=== PATIENT | female | born 1965 | race Caucasian/White ===

== ENCOUNTER 2021-12-26 10:07 | Emergency (ER) | payer BC, SELFPAY ==
[2021-12-26 10:08] VITALS: BP 147/90; PULSE 81; RESP 16; TEMP 36.3; O2SAT 100; BMI 19.0
--- NOTE | 2021-12-26 10:31 | EX.ED.DYSGE1 ---
HPI History of Present Illness Chief Complaint: Dizziness Informant: patient Onset/Context/Timing Onset: Today Context: Sudden Onset (Upon getting up out of bed) Timing: Intermittent Quality: Disequilibrium/off-balance Current Severity: Moderate Maximum Severity: Moderate Worsened by: Standing and walking Relieved by: Remaining still Associated Symptoms Associated Symptoms: None Narrative Narrative: Patient presents with disequilibrium. She states she noticed it upon getting out of bed this morning. She denies any earache, headache, nausea, vomiting, vision changes, peripheral weakness or numbness. She had this once before felt the same, went away on its own this was a year or 2 ago. She states she has chronic left ear issues. Mostly itching and irritation. She uses oil in it, she was told after she had swimmer's ear once that her left ear makes a lot of wax and so she tries to manage that with oil and Q-tips. States she has been messing with it a lot lately. She denies any pain or changes in hearing or tinnitus. PFSH PFS Medical History no medical history no medical history Home Medications gabapentin 300 mg capsule 300 mg PO TID 11/22/13 [History Last Taken Unknown] meclizine 25 mg tablet 25 mg PO Q8H PRN PRN Dizziness #20 tabs 12/26/21 [Rx Last Taken Unknown] Allergy/AdvReac Type Severity Reaction Status Date / Time erythromycin base AdvReac Upset Verified 12/26/21 10:07 [Erythromycin Base] Stomach Social History Smoking Status: Never smoker ROS ROS ED Constitutional Constitutional ED: Denies chills or fever(s) Eyes Eyes: Denies change in vision or diplopia ENT ENT ED: Reports as per HPI, disequillibrium and other Details: No janae vertigo ; Denies ear discharge, ear pain, rhinorrhea or sore throat Cardiovascular Cardiovascular: Denies chest pain or palpitations Respiratory/Chest Respiratory/Chest: Denies cough or dyspnea Gastrointestinal Gastrointestinal: Denies abdominal pain, diarrhea, nausea or vomiting Genitourinary Genitourinary ED: Denies dysuria or hematuria Musculoskeletal Musculoskeletal: Denies back pain or neck pain Integumentary Denies abscess or rash Neurologic Neurologic: Reports as per HPI and disequilibrium; Denies headache(s), paresthesias or weakness Psychiatric Psychiatric: Denies anxiety or suicidal thoughts EXAM Physical Exam Const Vital Signs: 12/26/21 10:08 Temperature 97.3 F L Temperature Source Temporal Pulse Rate 81 Respiratory Rate 16 Blood Pressure 147/90 H Blood Pressure Mean 109 Pulse Ox 100 Oxygen Delivery Method Room Air Positive well nourished and well developed General Appearance ED: well developed and NAD HEENT Reports moist mucous membranes HEENT Narrative: Normal EAC bilaterally. TMs are normal except for very slight erythema at the center of the left TM. normocephalic and atraumatic Eyes PERRL and EOMs intact bilaterally Neck full ROM and supple Resp normal respiratory effort and clear to auscultation bilaterally Cardio regular rate, regular rhythm and no murmurs GI non-tender and non-distended Auscultation: normoactive bowel sounds Palpation: soft Back/Spine no CVA tenderness General Back: other FROM Extremity normal to inspection General Extremety ED: Negative for edema, pulses abnormal or tenderness General Extremity: Negative for edema or pulses abnormal Neuro oriented x3, CN's II-XII intact bilaterally and no sensory deficits noted Neuro Narrative: No normal aliqkk-mi-wjaf and goii-iu-wziw bilaterally. Reproducible symptoms with Simon-Hallpike maneuver to the left but nothing to the right. No horizontal, vertical, or rotatory nystagmus. Sensorium / Orientation: awake and alert Motor Exam: strength 5/5 throughout Psych mental status grossly normal Skin no rashes or lesions noted and no wounds MDM MDM MDM Narrative Medical decision making narrative: Patient's history and exam are consistent with peripheral vertigo. Not able to do a jolt test because she is not having active symptoms while sitting at rest. Her left TM has slight erythema but not suggestive of acute otitis media and she has no pain, so I would not treat her with antibiotics unless she develops pain, if she does she is advised to seek follow-up or return to the ER. In the meantime I would treat her symptomatically with meclizine, will give her a dose and prescribed it for her and gave her otolaryngology follow-up as needed if she does not get better in a week and she is comfortable with that plan. Discharge Plan Triage Chief Complaint: Dizziness ED Provider: Santi Linares Dx/Rx/DC Orders Clinical Impression: Peripheral vertigo involving left ear Instructions: Inner Ear Balance, ED Vertigo, Unspecified Prescriptions: New meclizine [meclizine] 25 mg tablet 25 mg PO Q8H PRN PRN (Reason: Dizziness) Qty: 20 0RF No Action gabapentin 300 MG capsule 300 mg PO TID Label Comments: Primary Care Provider: Antonio Nieves Referrals: Antonio Nieves MD [Primary Care Provider] - Jae Loredo MD [Med Staff - Active Staff] - 1 Week if not improving Disposition Disposition: Home, Self Care
[2021-12-26] MEDS: Meclizine HCl 25 MG Tablet PO (10:40)
== END 2021-12-26 10:50 | disposition home or self-care (01) ==
LOC: ED 10:44
PROVIDERS: Emergency Provider Emergency Medicine; PCP Family Medicine; Visit Provider Emergency Medicine
DX: H81.392 Other peripheral vertigo, left ear (principal)
CPT/HCPCS: 99283

== ENCOUNTER 2024-09-01 18:56 | Emergency (ER) | payer BC, SELFPAY ==
[2024-09-01 18:58] VITALS: BP 186/88; PULSE 19; RESP 97; TEMP 36.6; O2SAT 100; BMI 18.3
--- NOTE | 2024-09-01 19:30 | EKG12_ITS ---
Test Reason : DYSRHYTHMIA Blood Pressure : */* mmHG Vent. Rate : 96 BPM Atrial Rate : 96 BPM P-R Int : 122 ms QRS Dur : 78 ms QT Int : 336 ms P-R-T Axes : 83 31 52 degrees QTcB Int : 424 ms Normal sinus rhythm Normal ECG Confirmed by Brenton Castillo ([id number]), health editor BON MEZA ([id number]) on 09/02/2024 9:19:03 AM Referred By: TA Confirmed By: Brenton Castillo
--- NOTE | 2024-09-01 21:15 | EDS_ITS ---
HPI History of Present Illness Chief Complaint: Palpitations [facility] Medical History Pulmonic stenosis Home Medications ?Medication ?Instructions ?Recorded ?Last Taken ?Type NK 09/01/24 Unknown History Allergy/AdvReac Type Severity Reaction Status Date / Time erythromycin base AdvReac Upset Verified 12/26/21 10:07 (Erythromycin Base) Stomach Family History no significant family his Social History Smoking Status: Never smoker EXAM Physical Exam Const Vital Signs: 09/01/24 18:58 09/01/24 21:16 09/01/24 23:00 Temperature 98 F Temperature Source Oral Pulse Rate 19 L 71 81 Respiratory Rate 97 H 16 16 Blood Pressure 186/88 H 167/85 H 144/86 H Blood Pressure Mean 120 112 105 Pulse Ox 100 100 99 Oxygen Delivery Method Room Air Room Air Room Air MDM MDM MDM Narrative Medical decision making narrative: HISTORY OF PRESENT ILLNESS: Chief complaint: Palpitations 58-year-old female history of pulmonary stenosis presenting with fluttering in the chest. She states has been on and off for over a month. She states she wants to get checked out. The patient denies personal family history of sudden cardiac . Denies recent chest pain, shortness of breath. Denies recent illness such as cough, chills or sweats. Denies recent volume ulcers vomiting or diarrhea. Denies any bleeding diathesis such as hemoptysis, vaginal bleeding, melena or hematochezia. The patient denies recent surgery in the last 4 weeks or immobilization in the last 3 days, denies previous diagnosis of DVT or PE, hemoptysis, unilateral leg swelling or malignancy with treatment the last 6 months or palliative. No estrogen use noted. REVIEW OF SYSTEMS: Pertinent positives: Palpitations Pertinent negatives: As per HPI PHYSICAL EXAM: Nursing triage notes reviewed, Vital signs reviewed Constitutional: please see mdm HENT: MMM Eyes: Pupils equal round and reactive to light, Extraocular muscles intact Neck: No stridor, no JVD, full neck ROM Lungs: Clear to auscultation, No wheezing or rales. No increased work of breathing, no conversational dyspnea, no accessory muscle use, no nasal flaring. No respiratory distress noted Heart: Regular rate and rhythm, No murmurs, No rubs and No gallops, 2+ distal pulses (radial, femoral, posterior tibial) in all extremities Abdomen: Soft, there is no tenderness, rigidity, rebound or guarding, no obvious peritoneal signs, no palpable pulsatile abdominal masses, no auscultated abdominal bruit : No CVAT Extremities: No edema Neuro: No new focal neurological deficits, cranial nerves II through XII intact, 5/5 strength in all present extremities. Intact sensation to light touch in all present extremities, 2+ reflexes bilateral patella tendons. Skin: No rash or lesions noted MEDICAL DECISION MAKING: Chief Complaint: please see HPI External records reviewed: Reviewed prior cardiovascular test Factors affecting care: Pulmonary stenosis Social determinants of health: denies alcohol or drug use History obtained from others: Consults: none MDM Narrative: The patient was initially hemodynamically stable, afebrile and nontoxic- appearing. Exam without focal cardiopulmonary abnormalities I considered the following differential diagnosis: Arrhythmia, anemia, electrolyte disturbance, dehydration, thyroid dysfunction I obtained a broad lab and imaging workup to further elucidate etiology patient complaints. Initially treated patient 1 L normal saline While I considered pulmonary embolism as a potential etiology the patient's complaints she had no chest pain, no shortness of breath is not hypoxic. In addition to that she had a negative well score. Her risk is low. No indication for D-dimer or CT at this time ALL IMAGES (IF OBTAINED) HAVE BEEN PERSONALLY REVIEWED AND INTERPRETED BY MYSELF. CBC without leukocytosis, severe anemia, no thrombocytopenia. EKG with normal sinus rhythm rate of 96, normal axis, normal intervals, no STEMI BMP without evidence of significant electrolyte abnormalities, no anion gap, no acute kidney injury. LFTs show no evidence of hepatobiliary pathology. TSH within normal limits, free T3 also negative making hypothyroidism unlikely. Free T4 elevated this is likely not clinically significant High-sensitivity troponin is negative, no evidence of myocardial ischemia I have personally reviewed the patient's chest x-ray. Chest x-ray is unremarkable for pulmonary edema, pneumothorax, pneumonia or focal cardiopulmonary abnormality. Upon reevaluation the patient's blood pressure improved from 186/88 to 144/86. No clear life-limiting etiology, identified. She is appropriate for discharge home with close PCP follow-up The patient and/or family, caregivers express understanding. The patient and/or family, caregivers agrees with the plan. Shared decision making: I will have a discussion with the patient and or visitors regarding risk/benefits of further testing or admission. They will be made aware of of the risk/benefits inherent in this decision they will be given the opportunity to voice understanding. Total critical care time today provided was at least 0 minutes. This excludes separately billable procedures. Critical care time (if documented) is secondary to the patient having high probability of clinically significant/life threatening deterioration in the patient's condition which required my urgent intervention. Impression: 1. Palpitations Dispo: Discharge home This note was generated with [employer] dictation software. It may contain incorrect words, spelling, and punctuation that were not noted in review of the chart prior to signing. Lab Data Labs: Laboratory Results - last 24 hr 09/01/24 21:23 WBC 8.3 RBC 4.86 Hgb 13.7 Hct 42.2 MCV 86.8 MCH 28.2 MCHC 32.5 RDW Std Deviation 42.8 RDW Coeff of Tahir 13.5 Plt Count 330 MPV 9.6 Immature Gran % (Auto) 0.100 Neut % (Auto) 55.8 Lymph % (Auto) 33.7 [place] % (Auto) 7.3 Eos % (Auto) 2.4 Baso % (Auto) 0.7 Absolute Neuts (auto) 4.7 Absolute Lymphs (auto) 2.81 Nucleated RBC % 0 Sodium 139 Potassium 5.2 H Chloride 103 Carbon Dioxide 30.2 Anion Gap 6 BUN 15 Creatinine 0.96 Estim Creat Clear Calc 43.29 L Est GFR (MDRD) Non-Af 68 BUN/Creatinine Ratio 15.8 Glucose 99 Calcium 9.6 Total Bilirubin 0.31 AST 45 H ALT 16 Alkaline Phosphatase 35 Troponin T High Sens 19 H Total Protein 7.7 Albumin 4.4 Globulin 3.3 Albumin/Globulin Ratio 1.3 TSH 2.640 Free T4 1.50 H Free T3 pg/dL 3.4 Radiography Diagnostic Testing: Clinical Impression(s) from Imaging Studies Chest X-Ray 09/01/24 21:55 IMPRESSION: No acute cardiopulmonary process. Reading Location: [facility] Discharge Plan Triage Chief Complaint: Palpitations ED Provider: Evans Bray Dx/Rx/DC Orders Prescriptions: No Action NK Primary Care Provider: Pankaj Carmichael Referrals: Antonio Nieves MD [Non-Staff] - Print Language: Sinhala
[2024-09-01 21:16] VITALS: BP 167/85; PULSE 71; RESP 16; O2SAT 100
[2024-09-01] MEDS: 0.9% Normal Saline (1000mL) 1,000 ML 1000 ML IV (21:25)
[2024-09-01 21:34] LABS: Absolute Lymphocyte Count 2.81 X10^3/uL (0.83-4.51); Absolute Neutrophil Count 4.7 X10^3/uL (2.0-7.7); Basophil# 0.06 X10^3/uL; Basophil% 0.7 % (0-1); Eosinophils% 2.4 % (0-5); Hematocrit 42.2 % (37-47); Hemoglobin 13.7 g/dL (12.0-15.0); Lymphocyte # 2.81 X10^3/ul (0.83-4.51); Lymphocyte % 33.7 % (19-41); Mean Corp Hgb Conc 32.5 g/dL (32-36); Mean Corpuscular Hgb 28.2 pg (27.0-32.0); Mean Corpuscular Volume 86.8 fL (81-99); Mean Platelet Vol. 9.6 fl (6.2-12.0); Monocyte# 0.61 X10^3/uL; Monocyte% 7.3 % (0-10); NRBC Flagged by Analyzer 0 % (0-5); Neutrophil # 4.65 X10^3/uL (2.7-7.7); Neutrophil % 55.8 % (47-70); Platelet Count 330 K/mm3 (150-450); RBC Distribution Width CV 13.5 % (11.6-14.6); RBC Distribution Width SD 42.8 fl (35.1-43.9); Red Blood Count 4.86 M/mm3 (4.2-5.4); White Blood Count 8.3 K/mm3 (4.4-11.0)
--- NOTE | 2024-09-01 21:55 | RAD_ITS ---
EXAM: XR Chest, 1 View CLINICAL INDICATION: PALPITATIONS TECHNIQUE: Frontal view of the chest. COMPARISON: No relevant prior studies available. FINDINGS: LUNGS AND PLEURAL SPACES: Unremarkable. No consolidation. No pneumothorax. HEART: Unremarkable. No cardiomegaly. MEDIASTINUM: Unremarkable. Normal mediastinal contour. BONES/JOINTS: Unremarkable. No acute fracture. RAD/Chest 1 View (Portable) IMPRESSION: No acute cardiopulmonary process. Reading Location: [id number]
[2024-09-01 22:18] LABS: ALB/GLOB Ratio 1.3 RATIO (0.9-2.4); Alanine Aminotransfer ALT/SGPT 16 U/L (<=34); Albumin, Serum 4.4 g/dL (3.4-4.8); Alkaline Phosphatase 35 U/L (35-104); Anion Gap 6 (5-15); BUN 15 mg/dL (4-19); BUN/Creat Ratio 15.8 RATIO (10-20); Calcium,Total 9.6 mg/dL (7.6-11.0); Carbon Dioxide 30.2 mmol/L (21.0-32.0); Chloride 103 mmol/L (98-108); Creatinine, Serum 0.96 mg/dL (0.70-1.20); EST Glomerular Filtration Rate 68 (>60); Estimated Creatinine Clearance 43.29 ml/min (50-250); Free T3 3.4 pg/mL (2.18-3.98); Globulin 3.3 g/dL (2.2-4.2); Glucose 99 mg/dL (70-99); Potassium 5.2 mmol/L (3.3-5.1); Protein, Total 7.7 g/dL (5.9-8.4); Sodium Level 139 mmol/L (133-145); Total Bilirubin 0.31 mg/dL (0.00-1.30)
[2024-09-01 22:32] LABS: Troponin T High Sensitivity 19 ng/L (<=14)
[2024-09-01 23:00] VITALS: BP 144/86; PULSE 81; RESP 16; O2SAT 99
[2024-09-01 23:18] VITALS: BP 154/89; PULSE 83; RESP 16; TEMP 36.6; O2SAT 100
[2024-09-01 23:19] LABS: AST(SGOT) 38 U/L (<=31)
== END 2024-09-01 23:29 | disposition home or self-care (01) ==
PROVIDERS: Emergency Provider Emergency Medicine; PCP Family Medicine; Visit Provider Emergency Medicine
DX: R00.2 Palpitations (principal)
CPT/HCPCS: 71045; 80053; 84439; 84443; 84481; 84484; 85025; 93005; 96360; 99283; A4216